=== PATIENT | female | born 1985 ===

== ENCOUNTER 2019-01-29 09:46 | Inpatient (IN) | payer BC ==
[2019-01-29] MEDS ORDERED: Ondansetron PF 4 MG/2 ML Vial IVP PRN ×3 (10:35→15:51)
[2019-01-29] MEDS ORDERED: hydrALAZINE 20 MG/ML VIAL SLOW IVP PRN ×2 (10:35→15:51)
[2019-01-29] MEDS ORDERED: Promethazine HCl 25 MG/ML VIAL IM PRN ×3 (10:35→15:51)
--- NOTE | 2019-01-29 10:39 | PDOC.LDHP ---
Labor and Delivery H&P HPI: 33 y/o at 39 weeks for repeat scheduled Current gestational age (weeks): 39 Due date: 02/05/19 Grav: 2 Para: 1 Current complications: none Abnormal US findings: No Current medications: pre- vitamins Previous surgical history: low tranverse CS - Physical Exam Vital signs reviewed and normal: yes General: NAD, resting Heart: RRR Lungs: CTAB Abdomen: gravid Extremeties: no edema FHT: category 1 - Assessment L&D Assessment: scheduled repeat section - Plan Plan: admit to L&D, to OR for section
[2019-01-29] MEDS ORDERED: CEFAZOLIN 2 GM in Premix Bag 1 BAG IVPB SCH (10:45)
[2019-01-29] MEDS ORDERED: Bicitra 30 ML UDCUP PO SCH (10:45)
[2019-01-29] MEDS: Lactated Ringer's 1,000 ML IV SCH ×2 (10:49→12:02)
[2019-01-29 10:54] VITALS: BMI 41.5
[2019-01-29 11:53] LABS: Hemoglobin 11.9 g/dL (12.0-16.0); Mean Corpuscular HGB CONC 34.9 g/dL (32.0-36.0); Mean Corpuscular Hemoglobin 31.4 pg (27.0-31.0); Red Blood Cell (RBC) Count 3.77 mill/uL (4.20-5.40); White Blood Cell (WBC) Count 9.4 thou/uL (4.8-10.8)
[2019-01-29] MEDS ORDERED: Oxytocin 10 UNITS/ML VIAL ONE ×2 (12:00→13:19)
[2019-01-29] MEDS ORDERED: MORPHINE 5 MG/10 ML PF VIAL ONE (12:00)
[2019-01-29 12:15] LABS: Mean Platelet Volume 9.1 fL (7.4-10.4); Platelet Count 112 thou/uL (130-400); RBC Distribution Width 13.6 % (11.5-14.5)
[2019-01-29] MEDS ORDERED: Clindamycin/D5W 900 MG in Premix Bag 1 BAG IVPB SCH (12:15)
[2019-01-29] MEDS ORDERED: Clindamycin/D5W 900 mg/50 ml Premix Bag ONE (12:15)
[2019-01-29 12:20] LABS: HBSAg Index 0.19 S/CO (0-0.99); Hep B Surf Ag Non-Reactive S/CO (NonReactive); Syphilis Antibody Nonreactive (Nonreactive); Syphilis Antibody Index 0.04 S/CO (<1.00 Non-Reactive)
[2019-01-29] MEDS ORDERED: Ondansetron PF 4 MG/2 ML Vial ONE ×2 (12:22→13:08)
[2019-01-29] MEDS ORDERED: PHENYLEPHRINE-NS 100 MCG/ML 10 ML SYRINGE ONE ×2 (12:22→12:36)
[2019-01-29] MEDS ORDERED: Vancomycin HCl 1 GM in Premix Bag 1 BAG IVPB SCH (12:30)
[2019-01-29] MEDS ORDERED: L&D-Morphine 4 MG/ML VIAL SLOW IVP PRN (13:09)
[2019-01-29] MEDS ORDERED: HYDROmorphone 2 MG/ML VIAL SLOW IVP PRN (13:09)
[2019-01-29] MEDS ORDERED: Promethazine HCl 25 MG SUPP PR PRN (13:09)
[2019-01-29] MEDS ORDERED: Meperidine HCl/PF 25 MG/ML VIAL SLOW IVP PRN (13:09)
[2019-01-29] MEDS ORDERED: diphenhydrAMINE 50 MG/ML VIAL IVP PRN (13:09)
[2019-01-29] MEDS ORDERED: Ketorolac Tromethamine 30 MG/ML VIAL IVP PRN (13:09)
[2019-01-29] MEDS ORDERED: Naloxone HCl 0.4 mg/ml Vial IV PRN (13:09)
[2019-01-29] MEDS ORDERED: Naloxone HCl 0.4 mg/ml Vial IVP PRN ×2 (13:09)
[2019-01-29] MEDS ORDERED: Ondansetron HCl/PF 4 MG/2 ML Vial IVP PRN (13:09)
[2019-01-29] MEDS ORDERED: Communication Order-Pharmacy FS SCH (13:15)
[2019-01-29] MEDS ORDERED: Ketorolac Tromethamine 30 MG/ML VIAL IVP SCH (13:15)
[2019-01-29] MEDS ORDERED: Lanolin Ointment 7 GM TUBE TOP PRN (15:51)
[2019-01-29] MEDS ORDERED: Simethicone Chewable 80 MG TAB PO PRN (15:51)
[2019-01-29] MEDS ORDERED: Zolpidem Tartrate 5 MG TAB PO PRN (15:51)
[2019-01-29] MEDS ORDERED: diphenhydrAMINE 25 MG CAP PO PRN (15:51)
[2019-01-29] MEDS ORDERED: Bisacodyl 10 MG SUPP PR PRN (15:51)
[2019-01-29] MEDS ORDERED: Misoprostol 200 MCG TAB PR PRN (15:51)
[2019-01-29] MEDS ORDERED: NS / Oxytocin 40 units/1000ml 1,000 ML IV SCH (16:00)
[2019-01-30] MEDS ORDERED: HYDROcodone/Acetaminophen 5/325 mg Tablet PO PRN ×2 (01:15)
[2019-01-30] MEDS ORDERED: Acetaminophen/Codeine 30-300mg Tablet PO PRN ×2 (01:15)
[2019-01-30 05:30] LABS: Mean Corpuscular HGB CONC 34.5 g/dL (32.0-36.0); Mean Corpuscular Hemoglobin 31.3 pg (27.0-31.0); Mean Platelet Volume 9.1 fL (7.4-10.4); Platelet Count 105 thou/uL (130-400); RBC Distribution Width 13.8 % (11.5-14.5); Red Blood Cell (RBC) Count 3.52 mill/uL (4.20-5.40); White Blood Cell (WBC) Count 9.6 thou/uL (4.8-10.8)
[2019-01-30] MEDS: Docusate Calcium (SURFAK) 240 MG CAP PO SCH ×3 (07:17→21:22)
[2019-01-30] MEDS: Prenatal Vitamin 1 TAB PO SCH (07:55)
[2019-01-30] MEDS ORDERED: Varicella virus, LIVE 0.5 ML VIAL SC ONE (09:00)
[2019-01-30] MEDS ORDERED: Measles/Mumps/Rubella 10 MCG/0.5 ML VIAL SC ONE (09:00)
[2019-01-30] MEDS ORDERED: Adacel (T-DAP) 0.5 ML SYRINGE IM ONE (09:00)
[2019-01-30] MEDS: Ibuprofen 800 MG TAB PO SCH ×2 (13:46→21:21)
--- NOTE | 2019-01-30 19:52 | PDOC.PP ---
Post Progress Note Post Day #: 1 PO intake tolerated: yes Flatus: yes Ambulation: yes Vital Signs (12 hours) Temp Pulse Resp BP Pulse Ox 01/30/19 15:40 98.1 F 97 12 127/65 96 01/30/19 11:28 97.6 F 85 20 126/75 01/30/19 08:13 98.0 F 96 20 116/72 96 Weight Weight 242 lb - Physical Examination General: NAD Cardiovascular: no m/r/g, RRR Respiratory: clear to auscultation bilaterally, non-labored breathing Abdominal: + bowel sounds, lochia Extremities: negative homans (B) Skin: CS incision dry & intact, no rash Neurological: no gross focal deficits Psychiatric: A&Ox3, normal affect Result Diagrams: 01/30/19 05:02 Additional Labs: Post Labs Blood Type O POSITIVE 01/29/19 12:36 Hep Bs Antigen Non-Reactive S/CO (NonReactive) 01/29/19 11:18
[2019-01-31] MEDS: Ibuprofen 800 MG TAB PO SCH ×3 (05:02→21:24)
[2019-01-31] MEDS: Prenatal Vitamin 1 TAB PO SCH (08:32)
[2019-01-31] MEDS: Docusate Calcium (SURFAK) 240 MG CAP PO SCH ×2 (08:32→21:24)
--- NOTE | 2019-01-31 14:46 | PDOC.PP ---
Post Progress Note Post Day #: 2 PO intake tolerated: yes Flatus: yes Ambulation: yes Vital Signs (12 hours) Temp Pulse Resp BP Pulse Ox 01/31/19 12:00 98 F 74 16 125/79 01/31/19 08:32 72 L 01/31/19 08:05 96.3 F L 72 18 129/77 97 01/31/19 05:00 98.0 F 87 18 133/74 Weight Weight 242 lb - Physical Examination General: NAD Cardiovascular: no m/r/g, RRR Respiratory: clear to auscultation bilaterally Abdominal: + bowel sounds, lochia, no distention, appropriately TTP Extremities: negative homans (B) Skin: CS incision dry & intact, no rash Neurological: no gross focal deficits Psychiatric: A&Ox3, normal affect Result Diagrams: 01/30/19 05:02 Additional Labs: Post Labs Blood Type O POSITIVE 01/29/19 12:36 Hep Bs Antigen Non-Reactive S/CO (NonReactive) 01/29/19 11:18
--- NOTE | 2019-01-31 22:01 | OP ---
DATE OF PROCEDURE: 01/29/2019 TIME OF SERVICE: At 1256 hours, [place] Daylight Savings Time. PREOPERATIVE DIAGNOSIS: Intrauterine at 39 weeks and 0 days, for repeat section. POSTOPERATIVE DIAGNOSES: Intrauterine at 39 weeks and 0 days, for repeat section as well as abnormal uterine lesion, suspicious for uterine fibroids. PROCEDURES PERFORMED: 1. Repeat low-transverse section. 2. Myomectomy with removal of one uterine fibroid on the anterior surface of the uterus. FINDINGS: Viable female infant weighing 3758 g or 8 pounds 5 ounces, Apgars 8 and 9. QUANTITATIVE BLOOD LOSS: 465 mL. COMPLICATIONS: None. DETAILS OF THE PROCEDURE: The patient was consented and taken back to the operating room where spinal anesthesia was found to be adequate. She was then prepped and draped in the normal sterile fashion. A timeout was performed by the entire operative team. The incision was then marked with a marking pen tested using sharp pickups. An incision was then made with a scalpel. The incision was carried through the adipose tissue down to the underlying rectus fascia using both sharp dissection as well as cautery. Once the fascia was identified, it was incised in the midline and then the fascial incision was carried through in both lateral directions using sharp as well as cautery dissection techniques. Next, the superior aspect of the rectus fascia was grasped with 2 Esvin clamps, which was tented up and the rectus muscles were dissected off using blunt dissection as well as cautery dissection. Similarly, the inferior aspect of the fascial incision was grasped with 2 Esvin clamps, tented up and the rectus muscles were dissected off bluntly as well as sharply. Next, the rectus muscles were in the midline and the peritoneum identified. The peritoneum was then carefully grasped with 2 hemostats and entered sharply. The peritoneal incision was extended superiorly and inferiorly and bladder blade was placed in the lower abdomen. At this point, the uterus was identified and the bladder flap was then developed using pickups with teeth as well as Metzenbaum scissors in both lateral directions. The bladder flap was then dissected downwards using the laminating machine operator helper's finger as well as Metzenbaum scissors. The bladder blade was replaced. The lower uterine segment was then identified and entered sharply using a clean scalpel. The uterine incision was then dissected downwards until thin layer of muscle remained and this was entered bluntly using a hemostat to avoid any injury to the baby. The uterine incision was then stretched using two fingers in both lateral directions. An amniotomy was performed artificially using a hemostat and the baby was delivered using fundal pressure in a gentle fashion. Once out, the baby's mouth and nose were bulb suctioned, cord clamped and cut, and the baby was handed to waiting attendants. Next, the uterus was exteriorized, cleared of all clots and debris and the uterine incision was repaired with #1 Monocryl in a running locking fashion. A 2nd suture of the same type was used to obtain complete hemostasis at the uterine incision. The bladder flap was reapproximated using 3-0 Monocryl. Next, patient's left and right adnexa were inspected and appeared to be within normal limits. The posterior cul-de-sac was blotted dry and hemostasis assured. One more look at the uterine incision demonstrated hemostasis. Next, the uterus was replaced back within the abdomen. The peritoneum was reapproximated using 2-0 Monocryl without difficulty. The rectus muscles were then allowed to come back together and 0 chromic was used to aid in reapproximation of the muscle as necessary. The rectus fascia was then reapproximated in a running fashion using 0 Vicryl suture. The adipose tissue was then examined and appeared to be well approximated without any obvious separations. Finally, the skin was reapproximated with 3-0 Monocryl on a Jey needle without difficulty and Dermabond adhesive was applied to the skin. Once the glue was dry, the drapes were removed and the patient was transferred to an ambulatory bed where she was taken to recovery awake and in stable condition. Sponge, lap, and needle counts were correct x3. Following the closure of the uterus, the uterus was inspected for any abnormalities and lesion was found on the anterior surface, which appeared to be a fibroid approximately 8 mm in diameter. It was a hard nodule and felt extremely firm below the serosal surface. This may represent a uterine fibroid, but definitive diagnosis could not be made visually and malignancy could not be absolutely ruled out. Therefore, this lesion was excised and sent to pathology for permanent section. A myomectomy was effectively performed removing this fibroid completely and then assuring hemostasis using 0 chromic as well as Bovie cautery. Job ID: [id number]
[2019-02-01] MEDS: Ibuprofen 800 MG TAB PO SCH (05:55)
--- NOTE | 2019-02-01 06:45 | PDOC.OBPPN ---
FMR OB PN: Subj - Interval History Hospital Day: 4 Day: 3 Chief Complaint: None Indentification: Interval History: Patient has trouble sleeping but otherwise did well overnight. No concerns. FMR OB PN: Obj - Maternal Vital signs: BP: 125/70 HR: 90 RR: 16 Tmax: 98.3F Pox: 96% on RA Wt: 109 kg - Urine output I&O: 01/30/19 01/31/19 02/01/19 06:59 06:59 06:59 Intake Total 3450 910 Output Total 8445 2250 Balance -4995 -2250 910 - Lochia Lochia: scant bloody lochia noted on exam - Pain Management Pain scale: 0 Intervention: oral medication FMR OB PN: Exam - Physical Exam General: NAD, awake, alert and oriented HEENT: normocephalic and atraumatic, conjunctiva clear, grossly normal vision, grossly normal hearing Neck: supple, FROM Heart: RRR, normal S1/S2, no murmurs/rubs/gallops, pulses present, no edema General: CTAB, no respiratory distress, good air movement, no rales/rhonchi, no wheezing, no retractions Abdomen: soft, fundus(cm) (firm), non-tender Musculoskeletal: normal gait and station, FROM in all four extremities Neurological: cranial nerves II through XII intact, sensation to pain,touch and proprioception grossly normal, no focal deficit Skin: no rash, good tugor, capillary refill <2 seconds : incision healing well, no erythema, no edema, no drainage, appropriately tender Lymphatic: no unusual bruising or bleeding, no purpura, no petechia Psychiatric: intact recent and remote memory, good judgement and insight, normal mood and affect - Pelvic Exam : sutures intact, no discharge, no edema, normal lochia FMR OB PN: A/P Disposition: 33YO G2 now P2002 who is day #3 s/p a rLTCS @ 39 weeks gestation. 1. day #3: Voiding and stooling normally. Pain well controlled on PO meds. Ambulating and tolerating PO well. well. 2. post-op day #3 s/p rLTCS @ 39 weeks: Incision intact and healing well w/ no s /s/ infection. Dispo: Patient cleared for d/c today & is to f/u with PCP, Dr. Gray, w/in 2-4 weeks for routine PP visit. Discussion: Date/Time: 02/01/19642 This H&P was discussed with Dr. Nice who agrees with the above documentation and plan. Addendum - Attending - Attending Attestation Date/Time: 02/01/1933 I personally evaluated the patient and discussed the management with Dr. sandhu I agree with the History, Examination, Assessment and Plan documented above with any addition or exceptions noted below.
[2019-02-01 08:46] VITALS: BP 133/82; TEMP 98.1
== END 2019-02-01 09:40 | disposition home or self-care (01) | DRG 788 ==
LOC: L&D 09:46 → 3SW 17:17
PROVIDERS: ADMIT Obstetrics & Gynecology; ATTEND Obstetrics & Gynecology
PROC: 10D00Z1 Extraction of Products of Conception, Low, Open Approach (ICD-10-PCS; principal; 2019-01-31)
PROC: 0UB90ZZ Excision of Uterus, Open Approach (ICD-10-PCS; 2019-01-31)
DX: O34.211 Maternal care for low transverse scar from previous cesarean delivery (principal); O34.13 Maternal care for benign tumor of corpus uteri, third trimester; Z37.0 Single live birth; Z3A.39 39 weeks gestation of pregnancy; D25.2 Subserosal leiomyoma of uterus; Z88.0 Allergy status to penicillin
CPT/HCPCS: 36415; 51702; 85027; 86780; 86850; 86900; 86901; 87340; 88305; J2274; J2405; J2590; J3370; J3490